=== PATIENT | male | born 1970 | race Asian ===

== ENCOUNTER 2022-09-21 07:54 | Day surgery (SDC) | payer OTHER ==
[~2022-09-21] VITALS: Ht 167.6 cm; Wt 78.5 kg
[~2022-09-21 07:54] MED LIST: HYDR-643 PO; LEXA1TAB2 PO; METF-839 PO; METF500T13 PO; NS 1,000 ML IV ONE
[2022-09-21] MEDS ORDERED: LIDOCAINE 2% 100MG/5ML SDV (FOR ANES.) As Ordered ONE (08:52)
[2022-09-21] MEDS ORDERED: propofoL 200 MG/20 ML VIAL As Ordered ONE (08:52)
[2022-09-21] MEDS ORDERED: SIMETHICONE 40MG/0.6ML DROPS 30ML As Ordered ONE (09:05)
[2022-09-21 09:55] VITALS: BP 126/80
== END 2022-09-21 10:30 | disposition home or self-care (01) ==
LOC: M OPP 07:54
PROVIDERS: ATTEND Internal Medicine Gastroenterology
DX: D12.6 Benign neoplasm of colon, unspecified (principal); K57.30 Diverticulosis of large intestine without perforation or abscess without bleeding; K64.4 Residual hemorrhoidal skin tags; K64.8 Other hemorrhoids; Z86.010 Personal history of colon polyps